=== PATIENT | male | born 1965 | race Caucasian/White ===

== ENCOUNTER 2017-08-11 11:51 | Day surgery (SDC) | payer OTHER ==
[2017-08-11] MEDS ORDERED: ALBUTEROL HFA 8 GM INHALER (15:22)
[2017-08-11] MEDS ORDERED: PROPOFOL 20 ML (15:23)
[2017-08-11] MEDS ORDERED: LIDOCAINE 2% (SDV) 5 ML INJ (15:23)
[2017-08-11] MEDS ORDERED: FENTAnyl 50 MCG/ML VIAL (15:23)
[2017-08-11] MEDS ORDERED: MIDAZOLAM 1 MG/ML 2 ML INJ (15:24)
== END 2017-08-11 16:33 | disposition home or self-care (01) ==
LOC: GIL 11:51
DX: Z12.11 Encounter for screening for malignant neoplasm of colon (principal); K64.8 Other hemorrhoids; K29.30 Chronic superficial gastritis without bleeding; B96.81 Helicobacter pylori [H. pylori] as the cause of diseases classified elsewhere; E11.9 Type 2 diabetes mellitus without complications; J45.909 Unspecified asthma, uncomplicated
CPT/HCPCS: 43239; 82962; 88305; 88312